=== PATIENT | male | born 1970 ===

== ENCOUNTER 2019-07-05 13:39 | Outpatient (CLI) | payer OTHER | END 2019-07-05 13:50 | disposition home or self-care (01) | LOC: NUCLEAR 13:39 | DX: M81.0 Age-related osteoporosis without current pathological fracture (principal); I10 Essential (primary) hypertension; M54.5 Low back pain; Z01.810 Encounter for preprocedural cardiovascular examination; E03.8 Other specified hypothyroidism; E78.89 Other lipoprotein metabolism disorders; E11.51 Type 2 diabetes mellitus with diabetic peripheral angiopathy without gangrene; E55.9 Vitamin D deficiency, unspecified; E11.9 Type 2 diabetes mellitus without complications; E66.8 Other obesity; J45.998 Other asthma; J44.1 Chronic obstructive pulmonary disease with (acute) exacerbation ==